=== PATIENT | female | born 1975 | race Caucasian/White ===

== ENCOUNTER → 2018-04-17 | Outpatient (CLI) | payer OTHER | LOC: MC.RAD 09:33 | DX: Z12.31 Encounter for screening mammogram for malignant neoplasm of breast (principal); N64.89 Other specified disorders of breast ==

== ENCOUNTER → 2018-05-08 | Outpatient (CLI) | payer OTHER | LOC: MC.RAD 08:55 | DX: D24.2 Benign neoplasm of left breast (principal); N64.89 Other specified disorders of breast | CPT/HCPCS: G0279 ==